=== PATIENT | female | born 1965 | race Caucasian/White ===

== ENCOUNTER 2016-09-14 22:53 | Emergency (ER) | payer OTHER | END 2016-09-15 00:11 | disposition home or self-care (01) | LOC: ER 22:53 | DX: M25.461 Effusion, right knee (principal); M54.31 Sciatica, right side; F17.200 Nicotine dependence, unspecified, uncomplicated; E10.9 Type 1 diabetes mellitus without complications | CPT/HCPCS: 73560-RT; 99283; A9270-GY ==